=== PATIENT | female | born 1945 | race Caucasian/White ===

== ENCOUNTER 2018-01-18 08:32 | Day surgery (SDC) | payer MEDICARE ==
[2018-01-18] VITALS (18 sets, daily range): BP systolic 92–145; BP diastolic 56–94
[~2018-01-18] VITALS: Ht 175.3 cm; Wt 90.0 kg
[~2018-01-18 08:32] MED LIST: AMIODARONE HCL 200 MG TABLET; APIX5TAB3 PO; CARVEDILOL 6.25 MG TABLET; ELIQUIS 5 MG TABLET; FURO-150 PO; LISI-234 PO; LISINOPRIL-HCTZ 20-25 MG TAB; SOTA80TA73 PO
[2018-01-18] MEDS ORDERED: normal saline 1000ml 1,000 ML IV PRN ×2 (09:05→09:30)
[2018-01-18] MEDS ORDERED: ACET-1017 PO (09:17)
[2018-01-18] MEDS ORDERED: LIDOcaine 1% 30ml preserv. free vial SQ STA (09:25)
[2018-01-18] MEDS ORDERED: fentaNYL/PF 50MCG/1 ML 2ML syringe IV ONE (09:30)
[2018-01-18] MEDS ORDERED: MIDAZolam 1mg/ml 10ml vial IV ONE (09:30)
[2018-01-18 09:46] LABS: BASOPHILS % (AUTO) 0.5 % (0-1); EOSINOPHILS # (AUTO) 0.1 X10'3 (0-0.9); EOSINOPHILS % (AUTO) 1.4 % (0-6); HEMATOCRIT 48.4 % (35.0-45.0); HEMOGLOBIN 16.5 g/dl (12.0-16.0); LYMPHOCYTES # (AUTO) 1.7 X10'3 (1.1-4.8); LYMPHOCYTES % (AUTO) 19.4 % (21-51); MEAN CORPUSCULAR HEMOGLOBIN 30.9 PG (27.0-31.0); MEAN CORPUSCULAR HGB CONC 34.2 % (33.0-36.5); MEAN CORPUSCULAR VOLUME 90.4 FL (78-98); MEAN PLATELET VOLUME 9.4 FL (7.4-10.4); MONOCYTES # (AUTO) 0.7 X10'3 (0-0.9); MONOCYTES % (AUTO) 8.2 % (2-12); NEUTROPHILS # (AUTO) 6.2 X10'3 (1.8-7.7); NEUTROPHILS % (AUTO) 70.5 % (42-75); PLATELET COUNT 187 X10'3 (140-440); RED BLOOD COUNT 5.36 X10'6 (4.20-5.60); RED CELL DISTRIBUTION WIDTH 13.4 % (11.5-14.5); WHITE BLOOD COUNT 8.9 X10'3 (4.5-11.0)
[2018-01-18] MEDS ORDERED: HYDROcodone/acetaminophen 5mg/325mg tablet PO PRN (11:45)
== END 2018-01-18 14:25 | disposition home or self-care (01) ==
LOC: SSTAY O 08:32
PROVIDERS: ATTEND Radiology Diagnostic Radiology
DX: K76.89 Other specified diseases of liver (principal); I11.0 Hypertensive heart disease with heart failure; I50.9 Heart failure, unspecified; I48.91 Unspecified atrial fibrillation; Z90.49 Acquired absence of other specified parts of digestive tract; Z90.721 Acquired absence of ovaries, unilateral; Z98.890 Other specified postprocedural states; Z79.01 Long term (current) use of anticoagulants; Z79.899 Other long term (current) drug therapy; Z86.19 Personal history of other infectious and parasitic diseases; Z87.891 Personal history of nicotine dependence; Z82.49 Family history of ischemic heart disease and other diseases of the circulatory system
CPT/HCPCS: 36415; 47000; 76942; 85025; 99152; 99153; J2250; J3010; J7030; 88173; 88305

== ENCOUNTER 2018-03-30 12:51 | Outpatient (CLI) | payer MEDICARE ==
[~2018-03-30] VITALS: Ht 172.7 cm; Wt 81.6 kg
[~2018-03-30 12:51] MED LIST changes: +ACET-1017 PO; -ELIQUIS 5 MG TABLET; -LISINOPRIL-HCTZ 20-25 MG TAB; -SOTA80TA73 PO
[2018-03-30] MEDS ORDERED: albuterol 2.5 MG/3 ML nebule NEB ONE (13:35)
== END 2018-03-30 23:59 | disposition home or self-care (01) ==
LOC: RT 12:51
PROVIDERS: ATTEND Internal Medicine Cardiovascular Disease
DX: Z51.81 Encounter for therapeutic drug level monitoring (principal); I11.0 Hypertensive heart disease with heart failure; I50.9 Heart failure, unspecified; Z79.899 Other long term (current) drug therapy; Z87.891 Personal history of nicotine dependence
CPT/HCPCS: 71046; 85018; 94010; 94727; 94729

== ENCOUNTER 2018-09-21 07:37 | Inpatient (IN) | payer MEDICARE, MEDICAID | END 2018-09-27 17:10 | disposition home or self-care (01) | LOC: PAS 07:37 → SUR 3N 09-24 13:35 | PROC: 0WUF4JZ Supplement Abdominal Wall with Synthetic Substitute, Percutaneous Endoscopic Approach (ICD-10-PCS; principal; 2018-09-21 10:20) | DX: K43.2 Incisional hernia without obstruction or gangrene (principal); I48.91 Unspecified atrial fibrillation; Z90.49 Acquired absence of other specified parts of digestive tract; Z90.721 Acquired absence of ovaries, unilateral; Z87.891 Personal history of nicotine dependence; Z82.49 Family history of ischemic heart disease and other diseases of the circulatory system; Z82.3 Family history of stroke; Z79.899 Other long term (current) drug therapy; Z79.2 Long term (current) use of antibiotics ==

== ENCOUNTER 2019-10-04 12:55 | Outpatient (CLI) | payer MEDICARE, MEDICAID ==
[~2019-10-04 12:55] MED LIST changes: -ACET-1017 PO; +ACET-812 PO; +AMIO200T61 PO; -AMIODARONE HCL 200 MG TABLET; +AMLO5TAB PO; +CARV6.253 PO; -CARVEDILOL 6.25 MG TABLET; -FURO-150 PO; -LISI-234 PO; +LISI1TAB29 PO; +TRAM50TA2 PO
[2019-10-04 13:25] LABS: TOTAL HEMOGLOBIN 15.6 G/dl (12.0-16.0)
== END 2019-10-04 23:59 | disposition home or self-care (01) ==
LOC: RT 12:55
PROVIDERS: ATTEND Internal Medicine Cardiovascular Disease
DX: Z79.899 Other long term (current) drug therapy (principal); R06.02 Shortness of breath; J44.9 Chronic obstructive pulmonary disease, unspecified; I50.22 Chronic systolic (congestive) heart failure
CPT/HCPCS: 71046; 85018; 94010; 94727; 94729

== ENCOUNTER 2019-12-22 10:58 | Day surgery (SDC) | payer MEDICARE, MEDICAID ==
[~2019-12-22] VITALS: Ht 175.3 cm; Wt 84.3 kg
[~2019-12-22 10:58] MED LIST changes: -AMLO5TAB PO; +AMOX-580 PO; +FAMO20TA8 PO; +HYDR-4353 PO; +LIDO1ADH78 TOP; +LISI-600 PO; -LISI1TAB29 PO; +METH57CR TOP; +ONDA4TAB12 PO; -TRAM50TA2 PO
[2019-12-22] MEDS ORDERED: normal saline 1000ml 1,000 ML IV PRN (11:25)
[2019-12-22 11:30] VITALS: BP 96/59
[2019-12-22] MEDS ORDERED: FURO-150 PO (12:48)
[2019-12-22] MEDS ORDERED: LISI40TA4 PO (12:48)
[2019-12-22] MEDS ORDERED: AMLO10TA PO (12:48)
[2019-12-22] MEDS ORDERED: midazolam 2 mg/2 ml injection ONE (13:12)
[2019-12-22] MEDS ORDERED: LIDOcaine 1%/PF 5ML 10 MG/ML VIAL ONE (13:12)
[2019-12-22] MEDS ORDERED: heparin sodium, porcine/PF 100unit/ml 5ML syringe ONE (13:12)
[2019-12-22] MEDS ORDERED: fentaNYL/PF 50MCG/1 ML 2ML syringe ONE (13:13)
[2019-12-22] MEDS ORDERED: ondansetron/PF 4mg/2ml inj ONE (13:53)
[2019-12-22 14:13] VITALS: BP 102/59
[2019-12-22 14:28] VITALS: BP 111/69
[2019-12-22 14:43] VITALS: BP 100/61
[2019-12-22 14:58] VITALS: BP 109/65
== END 2019-12-22 15:15 | disposition home or self-care (01) ==
LOC: SSTAY O 10:58
PROVIDERS: ATTEND Radiology Diagnostic Radiology
DX: C22.9 Malignant neoplasm of liver, not specified as primary or secondary (principal); I25.2 Old myocardial infarction; Z87.891 Personal history of nicotine dependence; Z82.3 Family history of stroke; Z82.49 Family history of ischemic heart disease and other diseases of the circulatory system
CPT/HCPCS: 36415; 36561; 76937; 77001; 85610; 99152; 99153; C1769; C1788; C1894; J1642; J2250; J2405; J3010